=== PATIENT | male | born 1965 | race Caucasian/White ===

== ENCOUNTER 2021-05-29 11:08 | Emergency (ER) | payer OTHER ==
[~2021-05-29] VITALS: Ht 188 cm; Wt 81.7 kg
[~2021-05-29 11:08] MED LIST: ALDACTONE50 MG PO; ATIVAN1 MG PO; BUSPIRONE HCL10 MG PO; CONSTULOSE10 GM/152; EPCLUSA 400 MG1 EACH PO; FENTANYL PATCH75 MCG TRANSDERM; FREEZE IT RE113.4 GM; FREEZE IT RE113.4 GM TP; GABAPENTIN 100100 MG PO; HUMALOG100 UNIT/1; LANTUS100 UNIT/M; METFORMIN HCL500 MG PO; NEURONTIN 300300 M1 PO; OXYCODONE HCL10 MG PO; OXYCONTIN10 M1 PO; PROAIR HFA8.5 GM INH; PROZAC20 MG PO; SEROQUEL XR 20200 MG; SYMBICORT80 MCG/4.1 INH; TRAZODONE HCL50 MG PO; UNICOMPLEX M TA1 TA1 PO; VITAMIN D5000 UNIT; XIFAXAN550 M1 PO
[2021-05-29 11:31] LABS: ABSOLUTE EOSINOPHILS 0.1 thou/uL (0.0-0.7); ABSOLUTE MONOCYTES 0.6 thou/uL (0.0-1.2); ABSOLUTE NEUTROPHILS 4.3 thou/uL (1.6-8.1); BASOPHILS 0.8 %; EOSINOPHILS 1.9 %; HEMATOCRIT 42.3 % (42.0-52.0); HEMOGLOBIN 14.6 gm/dL (14.0-18.0); LYMPHOCYTES 15.8 %; MCH 32.9 pg (26.0-34.0); MCHC 34.7 g/dL (28.0-37.0); MCV 94.9 fL (80.0-100.0); MONOCYTES 9.2 %; MPV 7.4 fl. (7.2-11.1); NUCLEATED RBCS 0 /100WBC; PLATELET COUNT* 179 thou/uL (150-400); POLYS 72.3 %; RBC 4.45 mil/uL (4.50-6.00); RDW-CV 12.4 % (10.5-14.5)
[2021-05-29 11:42] LABS: CALCIUM 9.2 mg/dL (8.5-10.1); CREATININE 0.9 mg/dL (0.6-1.3); POTASSIUM 3.6 mmol/L (3.5-5.1)
[2021-05-29 11:46] LABS: ALBUMIN 4.2 g/dL (3.4-5.0); TOTAL BILIRUBIN 1.2 mg/dL (<0.1-1.0); TOTAL PROTEIN 7.7 g/dL (6.4-8.2)
[2021-05-29 13:01] VITALS: BP 120/85
== END 2021-05-29 13:01 | disposition left against medical advice (07) ==
LOC: M.ERS 11:08
PROVIDERS: Emergency Medicine Emergency Medical Services
DX: K42.9 Umbilical hernia without obstruction or gangrene (principal); E11.9 Type 2 diabetes mellitus without complications; J44.9 Chronic obstructive pulmonary disease, unspecified; K21.9 Gastro-esophageal reflux disease without esophagitis; Z79.4 Long term (current) use of insulin; Z79.899 Other long term (current) drug therapy; Z88.0 Allergy status to penicillin